=== PATIENT | female | born 1945 | race Two or more races ===

== ENCOUNTER 2024-07-08 19:46 | Emergency (ER) | payer OTHER ==
[~2024-07-08] VITALS: Ht 172.7 cm; Wt 44.0 kg
[2024-07-08] MEDS ORDERED: SILENOR6 MG PO (20:11)
[2024-07-08] MEDS ORDERED: ATORVASTATIN CA10 MG PO (20:25)
[2024-07-08] MEDS ORDERED: SINGULAIR10 MG PO (20:25)
[2024-07-08] MEDS ORDERED: NEURONTIN300 MG PO (20:26)
[2024-07-08] MEDS ORDERED: DIOVAN160 M1 PO (20:26)
[2024-07-08] MEDS ORDERED: NORVASC5 MG PO (20:26)
[2024-07-08] MEDS ORDERED: PEPCID AC10 MG PO (20:26)
[2024-07-08] MEDS ORDERED: TRADJENTA5 MG PO (20:26)
[2024-07-08] MEDS ORDERED: FAMOTIDINE/PF 20 MG/2 ML VIAL IV PUSH STA (21:06)
[2024-07-08] MEDS ORDERED: FAMOTIDINE/PF 20 MG/2 ML VIAL ONE (21:24)
[2024-07-08 21:48] LABS: HEMATOCRIT 36.6 % (36.0-45.00); HEMOGLOBIN 12.1 g/dL (12.0-15.00); MEAN CORPUSCULAR HEMOGLOBIN 26.5 pg (27.00-32.0); MEAN CORPUSCULAR HGB CONC 33.2 g/dl (32.0-36.0); PLATELET COUNT 188 K/uL (150-450); RED BLOOD COUNT 4.57 M/uL (4.00-6.00); RED CELL DISTRIBUTION WIDTH 14.6 % (11.5-14.5)
[2024-07-08 22:13] LABS: ALBUMIN 3.6 gm/dL (3.4-5.0); BILIRUBIN TOTAL 0.63 mg/dL (0.3-1.2); CALCIUM 9.1 mg/dL (8.5-10.1); CREATININE SERUM 1.43 mg/dL (0.55-1.02); GFR 35.68; GLOBULINA 2.8 G/DL (2.4-3.5); POTASSIUM 3.81 mEq/L (3.5-5.1); TOTAL PROTEIN 6.4 gm/dL (6.4-8.2)
== END 2024-07-08 22:39 | disposition home or self-care (01) ==
LOC: ER 19:47
PROVIDERS: General Practice
DX: R53.81 Other malaise (principal); K21.9 Gastro-esophageal reflux disease without esophagitis; Z88.0 Allergy status to penicillin
CPT/HCPCS: 36415; 96365; 99282; J3490